=== PATIENT | female | born 1980 | race Hispanic/Latino ===

== ENCOUNTER 2016-10-20 12:14 | Emergency (ER) | payer OTHER ==
[2016-10-20] MEDS ORDERED: Lactated Ringer's 1,000 ML IV SCH (12:45)
[2016-10-20 12:46] VITALS: BMI 21.6
[2016-10-20 13:14] LABS: BASO % 0.1 % (0.0-2.0); EOS % 0.2 % (0.0-4.0); HEMATOCRIT 40.9 % (34.0-47.0); LYMPH % 15.1 % (20.0-40.0); MEAN CELL VOLUME 96.7 fl (81.0-99.0); MEAN CORPUSCULAR HEMOGLOBIN 32.5 pg (27.0-31.0); MEAN CORPUSCULAR HGB CONC 33.6 g/dL (33.0-37.0); MEAN PLATELET VOLUME 7.3 fl (7.2-11.7); MONO # 0.4 K/uL (0.0-0.8); MONO % 5.1 % (0.0-10.0); NEUT # 5.5 K/uL (1.8-7.0); NEUT % 79.5 % (50.0-75.0); RED CELL DISTRIBUTION WIDTH 13.5 % (11.5-14.5); WHITE BLOOD COUNT 6.9 K/uL (4.8-10.8)
[2016-10-20 13:17] LABS: ALB/GLOB RATIO 1.1 (1.0-2.1); ALKALINE PHOSPHATASE 158 U/L (38-126); ALT/SGPT 28 U/L (9-52); AST/SGOT 30 U/L (14-36); BILIRUBIN,TOTAL 0.6 mg/dl (0.2-1.3); BLOOD UREA NITROGEN 9 mg/dl (7-17); CALCIUM 9.5 mg/dL (8.4-10.2); CARBON DIOXIDE 24 mmol/L (22-30); CHLORIDE 107 mmol/L (98-107); GFR AFRICAN-AMERICAN > 60; GLUCOSE,RANDOM 111 mg/dL (65-105); POTASSIUM 4.3 MMOL/L (3.6-5.0); SODIUM 138 mmol/l (132-148); TOTAL PROTEIN 7.7 G/DL (6.3-8.2)
== END 2016-10-20 13:45 | disposition home or self-care (01) ==
LOC: H.EROB2 12:14 → H.EROB 12:15 → H.EROB2 13:45
DX: O47.03 False labor before 37 completed weeks of gestation, third trimester (principal); Z3A.36 36 weeks gestation of pregnancy

== ENCOUNTER 2016-11-07 11:00 | Inpatient (IN) | payer OTHER ==
[2016-11-07] MEDS ORDERED: Lactated Ringer's 2,000 ML IV ONE (11:30)
[2016-11-07 11:36] VITALS: BMI 23.0
[2016-11-07 12:11] LABS: BASO % 0.3 % (0.0-2.0); EOS % 0.3 % (0.0-4.0); HEMOGLOBIN 14.1 g/dL (12.0-16.0); LYMPH # 1.3 K/uL (1.0-4.3); LYMPH % 19.4 % (20.0-40.0); MEAN CELL VOLUME 96.8 fl (81.0-99.0); MEAN CORPUSCULAR HEMOGLOBIN 33.4 pg (27.0-31.0); MEAN CORPUSCULAR HGB CONC 34.5 g/dL (33.0-37.0); MEAN PLATELET VOLUME 7.3 fl (7.2-11.7); MONO # 0.5 K/uL (0.0-0.8); MONO % 7.5 % (0.0-10.0); NEUT % 72.5 % (50.0-75.0); NRBC % 0.1 % (0.0-0.0); RBC 4.23 Mil/uL (3.80-5.20); RED CELL DISTRIBUTION WIDTH 13.5 % (11.5-14.5); WHITE BLOOD COUNT 6.9 K/uL (4.8-10.8)
[2016-11-07] MEDS ORDERED: ceFAZolin 2 GM in Sodium Chloride 0.9% 100 ML IVPB ONE (12:15)
[2016-11-07] MEDS ORDERED: Oxytocin 30 units/LR 500ML 30 U/500 ML BAG IV ONE ×2 (12:23→13:28)
[2016-11-07 12:25] VITALS: BP 120/72; PULSE 92; RESP 18; TEMP 97.6; O2SAT 100
[2016-11-07] MEDS ORDERED: Morphine 1 mg/ml preservative-free Inj(Duramorph) ONE (12:40)
[2016-11-07] MEDS ORDERED: DiphenhydrAMINE 50 mg/ml Inj IVP PRN (14:09)
[2016-11-07] MEDS ORDERED: Naloxone 0.4 mg/ml Inj (Adult) IVP PRN (14:09)
[2016-11-07] MEDS ORDERED: Bisacodyl 5mg EC Tab PO PRN (14:20)
[2016-11-07] MEDS ORDERED: Oxycodone/Acetaminophen 5/325 mg Tab PO PRN ×2 (14:20)
[2016-11-07] MEDS: Simethicone 80 mg Chewtab PO SCH ×2 (19:45→21:51)
[2016-11-07] MEDS: Lactated Ringer's 1,000 ML IV SCH (21:52)
[2016-11-08] MEDS: Lactated Ringer's 1,000 ML IV SCH (04:54)
[2016-11-08] MEDS: Simethicone 80 mg Chewtab PO SCH ×4 (04:58→22:04)
[2016-11-08] MEDS ORDERED: Oxycodone/Acetaminophen 5/325 mg Tab PO PRN (08:09)
[2016-11-08] MEDS ORDERED: Bisacodyl 5mg EC Tab PO PRN (08:09)
[2016-11-08 08:12] LABS: BASO % 0.2 % (0.0-2.0); EOS % 0.2 % (0.0-4.0); HEMOGLOBIN 12.3 g/dL (12.0-16.0); LYMPH # 0.8 K/uL (1.0-4.3); LYMPH % 9.4 % (20.0-40.0); MEAN CELL VOLUME 96.6 fl (81.0-99.0); MEAN CORPUSCULAR HEMOGLOBIN 33.1 pg (27.0-31.0); MEAN CORPUSCULAR HGB CONC 34.3 g/dL (33.0-37.0); MONO # 0.4 K/uL (0.0-0.8); MONO % 4.9 % (0.0-10.0); NEUT # 7.4 K/uL (1.8-7.0); NEUT % 85.3 % (50.0-75.0); NRBC % 0.1 % (0.0-0.0); PLATELET COUNT 201 K/uL (130-400); RBC 3.73 Mil/uL (3.80-5.20); RED CELL DISTRIBUTION WIDTH 13.6 % (11.5-14.5); WHITE BLOOD COUNT 8.6 K/uL (4.8-10.8)
[2016-11-08] MEDS ORDERED: Multivitamin With Minerals Tab PO SCH (09:00)
[2016-11-08 10:01] LABS: ANISOCYTOSIS SLIGHT; LYMPHOCYTE 10 % (20-50); MONOCYTE 4 % (0-10); NEUTROPHIL 86 % (42-75); PLATELET ESTIMATE NORMAL (NORMAL); TOTAL CELLS COUNTED 100
[2016-11-08] MEDS: Oxycodone/Acetaminophen 5/325 mg Tab PO PRN ×2 (16:09→22:03)
--- NOTE | 2016-11-08 16:12 | OP ---
PREOPERATIVE DIAGNOSES: Intrauterine at 39 weeks, history of previous section, declined trial of labor. POSTOPERATIVE DIAGNOSES: Intrauterine at 39 weeks, history of previous section, declined trial of labor. OPERATION PERFORMED: Repeat left low flap transverse section via Pfannenstiel skin incision. SURGEON: Carlie Stark MD REHEATER: Andrew Rodriguez MD ANESTHESIA: Spinal, administered by Dr. Su. ESTIMATED BLOOD LOSS: 800 mL. URINE OUTPUT: Pinto catheter put out approximately 200 mL of clear urine. IV FLUID INTAKE: The patient received 700 mL of D5 LR intraoperatively. OPERATIVE FINDINGS: Baby boy, vertex presentation. Apgars 9 and 9, weighing 3350 g. Normal uterus, tubes, and ovaries were identified. ASSITANT: Dr. Rodriguez was the multimedia assistant during the procedure. He was instrumental in care of the patient. he helped create exposure, obtain hemostasis, and was helpful in delivering the infant and closure of the patient. The procedure would not have been possible without his assistance. PROCEDURE: After informed consent was obtained, the patient was taken to the operating room where she was given spinal anesthesia. She was then prepped and draped in the normal sterile fashion with the leftward tilt. The patient was prepped and draped. A Pfannenstiel skin incision was then made with the scalpel and carried down to the underlying layer of fascia. The fascia was then nicked in the midline. The fascial incision was then extended laterally with the curved Lugo scissors. The superior aspect of the fascial incision was then grasped with Maru clamps, elevated up and the rectus muscles were dissected off using both sharp and blunt dissection. Attention was then turned to the inferior aspect of the fascial incision which in similar fashion was grasped with Maru clamps, elevated up and the rectus muscles were dissected off using both sharp and blunt dissection. The rectus muscle was then in the midline, the peritoneum identified and entered sharply with the Metzenbaum scissors. The peritoneal incision was then extended superiorly and inferiorly with good visualization of the bladder. The bladder blade was inserted. The vesicouterine peritoneum identified, entered sharply with the Metzenbaum scissors. The incision was then extended laterally. The bladder flap created digitally. The bladder blade was then reinserted. A low transverse incision was then made with the scalpel. The uterine incision was then extended laterally with the bandage scissors. The 's head was then delivered atraumatically. The nose and mouth were suctioned with DeLee suction trap. The cord was clamped and cut. There was one loose nuchal cord, and the was handed off to waiting pediatricians. The placenta was then removed manually. The uterus was exteriorized and cleared off all clots and debris. The uterine incision was repaired with 0 Vicryl in a running locked fashion. Secondly, the same procedure was used to obtain excellent hemostasis. The abdomen was then irrigated. The irrigant was removed with the suction device. The uterus was returned to the abdomen. The gutters were cleared off all clots and debris. The uterine incision was reexamined and hemostasis was noted. The peritoneum was then closed with 2-0 Vicryl in a running fashion. The muscles were reapproximated with 0-Vicryl in an interrupted fashion. The fascia was closed with 0-Vicryl in a running fashion. The skin was closed with 4-0 on a Wyatt needle. All sponge, lap, needle and instrument counts were correct x2 and the patient was taken to recovery room in awake and stable condition. Carlie Stark MD ARTH[facility]
[2016-11-09] MEDS: Simethicone 80 mg Chewtab PO SCH ×4 (05:46→22:21)
[2016-11-09] MEDS: Multivitamin With Minerals Tab PO SCH (08:31)
--- NOTE | 2016-11-09 09:19 | OBPPN ---
Datetime: 11/08/2016 09:15 PP Pain Prov: Within normal limits PP Nausea Prov: Denies PP Flatus Prov: Yes PP Breasts Prov: Normal PP Heart Prov: Normal PP Lungs Prov: Normal PP Abdomen/Uterus Prov: Normal PP Lochia Prov: Normal PP Vulva/Perineum Prov: Normal PP CVA Tenderness Prov: Normal PP Extremities Prov: Normal PP C/S Incision Prov: Normal PP Progress Prov: Normal PP Comments Phys Exam Prov: Incision clean, dry, intact No erythema, swelling, induration No deep calf tenderness bilaterally PP Impression Prov: Normal progression PP Plan Prov: Continue present management PP Progress Note Prov: Postop day #1 status post , recovering well Out of bed, ambulate Postop CBC Advanced to regular diet Pain control Venodyne's while in bed Discussed plan with patient and all patient questions answered. IP PP Procedures: None Vital Signs Provider PP: Reviewed; Within Normal Limits
--- NOTE | 2016-11-09 09:27 | OBPPN ---
Datetime: 11/09/2016 09:23 PP Pain Prov: Within normal limits PP Nausea Prov: Denies PP Flatus Prov: Yes PP Breasts Prov: Normal PP Heart Prov: Normal PP Lungs Prov: Normal PP Abdomen/Uterus Prov: Normal PP Lochia Prov: Normal PP Vulva/Perineum Prov: Normal PP CVA Tenderness Prov: Normal PP Extremities Prov: Normal PP Comments Phys Exam Prov: Incision clean/dry/intact PP Impression Prov: Normal progression PP Plan Prov: Continue present management PP Progress Note Prov: Patient denies CP, no SOB, no N/V, tolerating PO diet, ambulating/voiding wel l, mild lochia, +flatus, abdominal pain tolerable with meds A/P POD #2 1. Reg diet 2. Percocet/Motrin prn pain 3. DUlcolax prn constipation 4.Encourage ambulation/voiding IP PP Procedures: None Vital Signs Provider PP: Reviewed; Within Normal Limits
[2016-11-10] MEDS: Simethicone 80 mg Chewtab PO SCH ×2 (06:09→09:37)
--- NOTE | 2016-11-10 08:09 | OBPPN ---
Datetime: 11/10/2016 08:08 PP Pain Prov: Within normal limits PP Nausea Prov: Denies PP Flatus Prov: Yes PP Breasts Prov: Normal PP Heart Prov: Normal PP Lungs Prov: Normal PP Abdomen/Uterus Prov: Normal PP Lochia Prov: Normal PP Vulva/Perineum Prov: Normal PP CVA Tenderness Prov: Normal PP Extremities Prov: Normal PP Comments Phys Exam Prov: Fundus firm under umbilicus PP Impression Prov: Normal progression PP Plan Prov: Continue present management PP Progress Note Prov: Patient denies CP, no SOB, no N/V, toleraing Po diet, ambualting/voiding well , mild lochia, +flatus, +BM, abdominal pain tolerable with meds A/P POD #3 1. Discharge patient home 2. Discharge instructions reviewed IP PP Procedures: None Vital Signs Provider PP: Reviewed; Within Normal Limits
--- NOTE | 2016-11-10 08:11 | OBDCSUM ---
Datetime: 11/10/2016 08:09 Discharged to, Provider: Home Follow up at, Provider: OB Disch Instr Activity: Normal activity Disch Instr Diet: Regular Discharge Instructions, Provider: Routine instructions given Discharge Diagnosis, Provider: Term Delivered Follow up in weeks, Provider: 2 wks and 6 wks Disch Referrals: None Contraception discussed, Prov: Yes Disch Activity Restrictions: No exercising; No sexual activity; Nothing in vagina - [facility], omi carpio
[2016-11-10] MEDS: Multivitamin With Minerals Tab PO SCH (09:37)
== END 2016-11-10 14:12 | disposition home or self-care (01) | DRG 766 ==
LOC: H.EROB2 11:01 → H.L&D 11:43 → H.OB/GYN 17:14
PROVIDERS: ADMIT Obstetrics & Gynecology Gynecology; ATTEND Obstetrics & Gynecology Gynecology
PROC: 10D00Z1 Extraction of Products of Conception, Low, Open Approach (ICD-10-PCS; principal; 2016-11-07)
PROC: 4A1HXCZ Monitoring of Products of Conception, Cardiac Rate, External Approach (ICD-10-PCS; 2016-11-07)
DX: O34.211 Maternal care for low transverse scar from previous cesarean delivery (principal); K59.00 Constipation, unspecified; O69.81X0 Labor and delivery complicated by cord around neck, without compression, not applicable or unspecified; Z3A.39 39 weeks gestation of pregnancy; Z37.0 Single live birth; Z91.013 Allergy to seafood